=== PATIENT | male | born 1980 | race Caucasian/White ===

== ENCOUNTER 2024-06-16 20:20 | Emergency (ER) | payer SELFPAY ==
[~2024-06-16] VITALS: Ht 182.9 cm; Wt 136.1 kg
[2024-06-16] MEDS ORDERED: DOXY100T2 PO (21:25)
[2024-06-16 21:34] VITALS: BP 140/90; TEMP 98.5; O2SAT 100
== END 2024-06-16 21:30 | disposition home or self-care (01) ==
LOC: ER 20:22
DX: L02.211 Cutaneous abscess of abdominal wall (principal); I10 Essential (primary) hypertension; Z60.2 Problems related to living alone